=== PATIENT | female | born 1945 | race Caucasian/White ===

== ENCOUNTER 2017-01-30 17:26 | Emergency (ER) | payer MEDICARE, OTHER ==
[~2017-01-30] VITALS: Ht 162.6 cm; Wt 81.2 kg
[~2017-01-30 17:26] MED LIST: CLON0.1T PO; METF500T4 PO; METO50TA7 PO; NEBI2.5T5 PO
== END 2017-01-30 18:56 | disposition left against medical advice (07) ==
LOC: ER 17:27
DX: S90.121A Contusion of right lesser toe(s) without damage to nail, initial encounter (principal); E11.9 Type 2 diabetes mellitus without complications; I10 Essential (primary) hypertension; M19.90 Unspecified osteoarthritis, unspecified site; W20.8XXA Other cause of strike by thrown, projected or falling object, initial encounter; Y93.89 Activity, other specified; Y92.89 Other specified places as the place of occurrence of the external cause; Y99.8 Other external cause status
CPT/HCPCS: 73630; 99284; A4663

== ENCOUNTER 2018-12-05 05:47 | Emergency (ER) | payer MEDICARE, OTHER ==
[~2018-12-05] VITALS: Ht 165.1 cm; Wt 74.8 kg
[~2018-12-05 05:47] MED LIST changes: +METF-440 PO; -METF500T4 PO
--- NOTE | 2018-12-05 06:05 | NUR ---
ER physician in patients room.
[2018-12-05] MEDS ORDERED: FLUORESCEIN SODIUM 1 MG STRIP ONE (06:11)
[2018-12-05] MEDS ORDERED: FLUORESCEIN SODIUM 1 MG STRIP OP ONE (06:15)
[2018-12-05] MEDS ORDERED: SULFACETAMIDE SOD 10% OPHT DR 15 ML BOTTLE OP ONE (06:15)
[2018-12-05] MEDS ORDERED: SULFACETAMIDE SOD 10% OPHT DR 15 ML BOTTLE ONE (06:22)
--- NOTE | 2018-12-05 06:29 | NUR ---
Patient discharged to home in stable conditon. Written and verbal after care instructions given. Patient verbalizes understanding of instructions. Patient self ambulatory with steady gait. Patient belongings and exit care package was taken home with patient.
[2018-12-05 06:32] VITALS: BP 131/72
== END 2018-12-05 06:43 | disposition home or self-care (01) ==
LOC: ER 05:50
DX: S05.01XA Injury of conjunctiva and corneal abrasion without foreign body, right eye, initial encounter (principal); I10 Essential (primary) hypertension; E11.9 Type 2 diabetes mellitus without complications; Z79.899 Other long term (current) drug therapy; X58.XXXA Exposure to other specified factors, initial encounter; Y93.89 Activity, other specified; Y92.89 Other specified places as the place of occurrence of the external cause; Y99.8 Other external cause status
CPT/HCPCS: A4663